=== PATIENT | male | born 1990 | race Caucasian/White ===

== ENCOUNTER 2021-06-23 10:51 | Emergency (ER) | payer OTHER ==
[2021-06-23] MEDS ORDERED: Acetaminophen 500 MG Tab PO ONE (11:19)
[2021-06-23] MEDS ORDERED: Diphtheria,Pertussis(Acell),Tetanus Vaccine 0.5 ML Syringe IM ONE (11:59)
--- NOTE | 2021-06-23 12:10 | EDM.PDOC ---
ED HPI GENERAL MEDICAL PROBLEM - General Chief Complaint: Neck Problem Stated Complaint: FELL OFF LADDER Time Seen by Provider: 06/23/21 11:52 Source of Information: Reports: Patient, RN, RN Notes Reviewed History Limitations: Reports: No Limitations - History of Present Illness INITIAL COMMENTS - FREE TEXT/NARRATIVE: Bladimir is a 31 y/o male who presents to the ED via personal vehicle with complaints of right wrist pain and left posterior neck pain following a fall from a tree stand. The patient reports approximately one hour ago he fell approximately 12 feet out of a tree stand he was building. He denies loss of consciousness during the event and does not feel like he struck his head, but is unsure how he fell. He notes vision changes, including tunnel vision while dr day, since the injury. He denies projectile vomiting, seizure-like activity, or lethargy. He denies headache, chest pain, abdominal pain, back pain, lower extremity pain, saddle paraesthesia, difficulty with ambulation, or nausea. He notes he is able to move his neck and right wrist, but is unable to do so without pain. He has taken no medication for his symptoms. neck Pain Score (Numeric/FACES): 7 - Related Data Allergies Allergy/AdvReac Type Severity Reaction Status Date / Time No Known Allergies Allergy Verified 06/23/21 11:54 Home Meds: Home Meds . [No Known Home Meds] 06/23/21 [History] Past Medical History HEENT History: Reports: None Cardiovascular History: Reports: None Respiratory History: Reports: Asthma Other Respiratory History: asthma as a child Gastrointestinal History: Reports: None Genitourinary History: Reports: None Musculoskeletal History: Reports: None Neurological History: Reports: None Psychiatric History: Reports: None Endocrine/Metabolic History: Reports: None Hematologic History: Reports: None Immunologic History: Reports: None Oncologic (Cancer) History: Reports: None Dermatologic History: Reports: None - Infectious Disease History Infectious Disease History: Reports: Other (See Below) Other Infectious Disease History: spider bite with 10 day course IV antibiotics - Past Surgical History HEENT Surgical History: Reports: None Cardiovascular Surgical History: Reports: None Respiratory Surgical History: Reports: None GI Surgical History: Reports: Appendectomy Social & Family History - Family History Family Medical History: No Pertinent Family History - Tobacco Use Tobacco Use Status *Q: Current Every Day Tobacco User Years of Tobacco use: 12 Packs/Tins Daily: 0.5 - Caffeine Use Caffeine Use: Reports: Energy Drinks - Recreational Drug Use Recreational Drug Use: Yes Recreational Drug Type: Reports: Marijuana/Hashish Recreational Drug Use Frequency: Daily ED ROS GENERAL - Review of Systems Review Of Systems: Comprehensive ROS is negative, except as noted in HPI. ED EXAM, GENERAL - Physical Exam Exam: See Below Exam Limited By: No Limitations General Appearance: Alert, No Apparent Distress, Thin Eye Exam: Bilateral Eye: EOMI, Normal Inspection, PERRL (3mm) Ears: Normal External Exam, Normal Canal, Hearing Grossly Normal, Normal TMs Ear Exam: Bilateral Ear: Auricle Normal, Canal Normal, TM normal Nose: Normal Inspection, Normal Mucosa, No Blood Throat/Mouth: Normal Inspection, Normal Oropharynx, Normal Voice, No Airway Compromise Head: Atraumatic, Normocephalic Neck: Supple, Tender Lateral, Other (Pain with lateral rotation of neck, c- collar applied) Respiratory/Chest: No Respiratory Distress, Lungs Clear, Normal Breath Sounds, No Accessory Muscle Use, Chest Non-Tender. No: Decreased Breath Sounds, Crackles, Rales, Rhonchi, Wheezing, Retractions, Splinting, Prolonged Expiration Cardiovascular: Normal Peripheral Pulses, Regular Rate, Rhythm, No Edema, No Gallop, No JVD, No Murmur, No Rub, Other (No chest pain to palpation or crepitus) Peripheral Pulses: 2+: Radial (L), Radial (R), Dorsalis Pedis (L), Dorsalis Pedis (R) GI/Abdominal: Soft, Non-Tender, No Distention, No Abnormal Bruit, No Mass, Pelvis Stable, Abnormal Bowel Sounds (Hypoactive bowel sounds) (Male) Exam: Deferred Rectal (Males) Exam: Deferred Back Exam: Normal Inspection, Full Range of Motion. No: Paraspinal Tenderness, Vertebral Tenderness Extremities: Non-Tender, No Pedal Edema, Normal Capillary Refill, Arm Pain (To right wrist), Limited Range of Motion (To right wrist). No: Leg Pain, Mottled, Pallor, Redness Neurological: Alert, Oriented, CN II-XII Intact, Normal Cognition, Normal Gait, No Motor/Sensory Deficits Psychiatric: Normal Affect, Normal Mood Skin Exam: Warm, Dry, No Rash, Ecchymosis (To right anterior wrist), Wound/Incision (Superficial 1cm, circular laceration to right anterior palm). No: Jaundice, Mottled, Pallor, Petechiae ED GENERAL MEDICAL PROCEDURES - Laceration/Wound Repair Right Anterior Medial Proximal Hand Lac/wound length in cm: 1 Appearance: Superficial, Linear, Clean Distal NVT: Neuro & Vascular Intact, No Tendon Injury Skin Prep: Chlorhexidine (Hibiciens), Saline Exploration/Debridement/Repair: Wound Explored, In a Bloodless Field, Explored to Base, No Foreign Material Found, Wound Margins Revised Closed with: Steri-Strips Drain Placement: No Sterile Dressing Applied: Nurse Tetanus Status Addressed: Yes Complications: No - Splinting Right Upper Extremity Splint Site: Wrist Pre-procedure NV status: Normal Post-procedure NV status: Normal Splint Type: Custom Splint Material: Fiberglass Splint Design: Sugar Tong Applied & Form Fitted By: Provider, Nurse Provider Post-Splint Application NV Check: NV Status Normal, Good Position Complications: No Course - Vital Signs Last Recorded V/S: Last Vital Signs Temp 97.4 F 06/23/21 11:48 Pulse 70 06/23/21 11:48 Resp 18 06/23/21 11:48 BP 132/88 06/23/21 11:48 Pulse Ox 100 06/23/21 11:48 - Orders/Labs/Meds Meds: Medications Discontinued Medications Generic Name Dose Route Start Last Admin Trade Name Ron PRN Reason Stop Dose Admin Acetaminophen 1,000 mg 06/23/21 11:19 06/23/21 12:16 Acetaminophen 500 Mg Tab PO 06/23/21 11:20 1,000 mg ONETIME ONE Administration Diphtheria/Tetanus/Acell Pertussis 0.5 ml 06/23/21 11:59 06/23/21 12:13 Diphtheria,Pertussis(Acell),Tetanus Vaccine 0.5 Ml Syringe IM 06/23/21 12:00 0.5 ml .ONCE ONE Administration - Radiology Interpretation Free Text/Narrative:: [facility] Final Radiology Report Call: [phone] assistance Online chat: [email or web address] Name: BLADIMIR FRANCO Age: 31Years M Date: 06/23/2021 SSN: -- : 1990 Study: CT HEAD WO CONT Requesting Physician: Brenna Miller Images: 160 Addl Studies: Provided Clinical History: Fall from 12 feet; Neck pain with rotation Contrast: Without Contrast Medium: Contrast Amount: Contrast Method: Page 1 of 2 PROCEDURE INFORMATION: Exam: CT Head Without Contrast Exam date and time: 06/23/2021 11:33 AM Age: 31 years old Clinical indication: Injury or trauma; Fall; Blunt trauma (contusions or hematomas); With loss of consciousness; Loss of consciousness for 30 minutes or less; Additional info: Fall from 12 feet; Neck pain with rotation TECHNIQUE: Imaging protocol: Computed tomography of the head without contrast. Radiation optimization: All CT scans at this facility use at least one of these dose optimization techniques: automated exposure control; mA and/or kV adjustment per patient size (includes targeted exams where dose is matched to clinical indication); or iterative reconstruction. COMPARISON: No relevant prior studies available. FINDINGS: Brain: No hemorrhage. Unremarkable white matter for the patient's age. No mass effect. No evolving territorial infarct. Cerebral ventricles: No ventriculomegaly. Paranasal sinuses: Retention cysts or polyps in the maxillary sinuses. Left anterior ethmoid opacity. No sinus air-fluid levels. Mastoid air cells: Visualized mastoid air cells are well aerated. Bones/joints: Unremarkable. No acute fracture. Soft tissues: Unremarkable. IMPRESSION: No acute intracranial abnormality seen. Thank you for allowing us to participate in the care of your patient. Dictated and Authenticated by: Kassandra Perez MD 06/23/2021 12:27 PM Central Time ([place] & [place]) [facility] Final Radiology Report Call: [phone] assistance Online chat: [email or web address] Name: BLADIMIR FRANCO Age: 31Years M Date: 06/23/2021 SSN: -- : 1990 Study: CR WRIST COMP MIN 3V RT Requesting Physician: Brenna Miller Images: 3 Addl Studies: Provided Clinical History: Pain in wrist following fall from 12 feet Contrast: Contrast Medium: Contrast Amount: Contrast Method: CONFIDENTIALITY STATEMENT This report is intended only for use by the referring physician, and only in accordance with law. If you received this in error, call [phone]. Page 1 of 1 PROCEDURE INFORMATION: Exam: XR Right Wrist Exam date and time: 06/23/2021 11:39 AM Age: 31 years old Clinical indication: Injury or trauma; Fall; Blunt trauma (contusions or hematomas); Wrist; Right; Additional info: Pain in wrist following fall from 12 feet TECHNIQUE: Imaging protocol: XR Right wrist. Views: 3 or more views. COMPARISON: No relevant prior studies available. FINDINGS: Bones/joints: There is a minimally displaced fracture through the distal radius with horizontal dominant component and additional vertical component along the ulnar aspect involving the radiocarpal compartment. No other fracture is identified. The joint spaces are normally aligned. Soft tissues: There is associated soft tissue swelling. IMPRESSION: Acute distal radial fracture. Thank you for allowing us to participate in the care of your patient. Dictated and Authenticated by: Mundo Vega MD 06/23/2021 12:27 PM Central Time ([place] & [place]) [facility] Final Radiology Report Call: [phone] assistance Online chat: [email or web address] Name: BLADIMIR FRANCO Age: 31Years M Date: 06/23/2021 SSN: -- : 1990 Study: CT CERVICAL SPINE WO CONT Requesting Physician: Brenna Miller Images: 390 Addl Studies: Provided Clinical History: Fall from 12 feet; Neck pain with rotation Contrast: Without Contrast Medium: Contrast Amount: Contrast Method: Page 1 of 2 PROCEDURE INFORMATION: Exam: CT Cervical Spine Without Contrast Exam date and time: 06/23/2021 11:33 AM Age: 31 years old Clinical indication: Injury or trauma; Fall; Blunt trauma; Additional info: Fall from 12 feet; Neck pain with rotation TECHNIQUE: Imaging protocol: Computed tomography images of the cervical spine without contrast. Radiation optimization: All CT scans at this facility use at least one of these dose optimization techniques: automated exposure control; mA and/or kV adjustment per patient size (includes targeted exams where dose is matched to clinical indication); or iterative reconstruction. COMPARISON: No relevant prior studies available. FINDINGS: Bones/joints: Reversal of the upper cervical lordosis may be positional or due to muscle spasm. No acute fracture seen. Discs/Spinal canal/Neural foramina: At C5-C6, disc bulge versus small disc protrusion does not contribute to significant central spinal canal stenosis. Lungs: Lung apices are normal. Soft tissues: Unremarkable. IMPRESSION: No cervical spine fracture seen. Thank you for allowing us to participate in the care of your patient. Dictated and Authenticated by: Kassandra Perez MD 06/23/2021 12:30 PM Central Time ([place] & [place]) - Re-Assessments/Exams Free Text/Narrative Re-Assessment/Exam: 06/23/21 Findings of examination and imaging reviewed with patient. Distal radial fracture splinted with a sugar tong splint without complication. Boostrix administered. Patient instructed to follow up with an orthopedic surgeon in 3-5 days; he requested his films be sent to [facility]. Discussed supportive cares for distal radial fracture reviewed. Red flag signs and symptoms which would warrant reevaluation reviewed. Patient verbalized understanding and agreement with the plan of care. Departure - Departure Time of Disposition: 12:55 Disposition: Home, Self-Care 01 Condition: Good Clinical Impression: Neck pain Fall from ladder Qualifiers: Encounter type: initial encounter Qualified Code(s): W11.XXXA - Fall on and from ladder, initial encounter Distal radius fracture, left Qualifiers: Encounter type: initial encounter Fracture type: closed Fracture morphology: unspecified fracture morphology Qualified Code(s): S52.502A - Unspecified fracture of the lower end of left radius, initial encounter for closed fracture - Discharge Information *PRESCRIPTION DRUG MONITORING PROGRAM REVIEWED*: Not Applicable *COPY OF PRESCRIPTION DRUG MONITORING REPORT IN PATIENT JOSHUA: Not Applicable Instructions: Radial Fracture Referrals: Humberto Trevino MD [Primary Care Provider] - Forms: ED Department Discharge Additional Instructions: Rx: Percocet 1.) Follow up with an orthopedic surgeon on 3-5 days regarding today's visit. Your x-ray images have been sent to [facility], per your request. [facility], Dr. Stapleton and Dr. Luz's clinic, is [phone]. 2.) You may take ibuprofen (Advil/Motrin) 400mg every six hours, as pain and swelling persists. You may also take acetaminophen (Tylenol) 650mg every six hours, as pain persists. You may stagger these medications so you are receiving a dose every three hours. 3.) Keep the wrist elevated above the heart while at rest, up on two pillows while laying down. 4.) Follow up with primary care provider regarding today's visit. Sepsis Event Note (ED) - Evaluation Sepsis Screening Result: No Definite Risk - Focused Exam Vital Signs: Vital Signs Temp Pulse Resp BP Pulse Ox 06/23/21 11:48 97.4 F 70 18 132/88 100
--- NOTE | 2021-06-23 12:28 | CR ---
PROCEDURE INFORMATION: Exam: XR Right Wrist Exam date and time: 06/23/2021 11:39 AM Age: 31 years old Clinical indication: Injury or trauma; Fall; Blunt trauma (contusions or hematomas); Wrist; Right; Additional info: Pain in wrist following fall from 12 feet TECHNIQUE: Imaging protocol: XR Right wrist. Views: 3 or more views. COMPARISON: No relevant prior studies available. FINDINGS: Bones/joints: There is a minimally displaced fracture through the distal radius with horizontal dominant component and additional vertical component along the ulnar aspect involving the radiocarpal compartment. No other fracture is identified. The joint spaces are normally aligned. Soft tissues: There is associated soft tissue swelling. IMPRESSION: Acute distal radial fracture.
--- NOTE | 2021-06-23 12:28 | CT ---
PROCEDURE INFORMATION: Exam: CT Head Without Contrast Exam date and time: 06/23/2021 11:33 AM Age: 31 years old Clinical indication: Injury or trauma; Fall; Blunt trauma (contusions or hematomas); With loss of consciousness; Loss of consciousness for 30 minutes or less; Additional info: Fall from 12 feet; Neck pain with rotation TECHNIQUE: Imaging protocol: Computed tomography of the head without contrast. Radiation optimization: All CT scans at this facility use at least one of these dose optimization techniques: automated exposure control; mA and/or kV adjustment per patient size (includes targeted exams where dose is matched to clinical indication); or iterative reconstruction. COMPARISON: No relevant prior studies available. FINDINGS: Brain: No hemorrhage. Unremarkable white matter for the patient's age. No mass effect. No evolving territorial infarct. Cerebral ventricles: No ventriculomegaly. Paranasal sinuses: Retention cysts or polyps in the maxillary sinuses. Left anterior ethmoid opacity. No sinus air-fluid levels. Mastoid air cells: Visualized mastoid air cells are well aerated. Bones/joints: Unremarkable. No acute fracture. Soft tissues: Unremarkable. IMPRESSION: No acute intracranial abnormality seen.
--- NOTE | 2021-06-23 12:31 | CT ---
PROCEDURE INFORMATION: Exam: CT Cervical Spine Without Contrast Exam date and time: 06/23/2021 11:33 AM Age: 31 years old Clinical indication: Injury or trauma; Fall; Blunt trauma; Additional info: Fall from 12 feet; Neck pain with rotation TECHNIQUE: Imaging protocol: Computed tomography images of the cervical spine without contrast. Radiation optimization: All CT scans at this facility use at least one of these dose optimization techniques: automated exposure control; mA and/or kV adjustment per patient size (includes targeted exams where dose is matched to clinical indication); or iterative reconstruction. COMPARISON: No relevant prior studies available. FINDINGS: Bones/joints: Reversal of the upper cervical lordosis may be positional or due to muscle spasm. No acute fracture seen. Discs/Spinal canal/Neural foramina: At C5-C6, disc bulge versus small disc protrusion does not contribute to significant central spinal canal stenosis. Lungs: Lung apices are normal. Soft tissues: Unremarkable. IMPRESSION: No cervical spine fracture seen.
== END 2021-06-23 13:09 | disposition home or self-care (01) ==
LOC: DL.ED 10:51
DX: S52.592A Other fractures of lower end of left radius, initial encounter for closed fracture (principal); S61.411A Laceration without foreign body of right hand, initial encounter; M54.2 Cervicalgia; Z23 Encounter for immunization; Z72.0 Tobacco use; W11.XXXA Fall on and from ladder, initial encounter
CPT/HCPCS: 29105; 29125; 70450; 72125; 73110; 90471; 90715; 99284; A9270